=== PATIENT | female | born 1950 | race Caucasian/White ===

== ENCOUNTER 2019-03-29 21:17 | Emergency (ER) | payer OTHER, MEDICARE ==
[~2019-03-29] VITALS: Ht 157.5 cm; Wt 55.3 kg
[2019-03-29 21:45] LABS: BASOPHILS ABSOLUTE AUTO 0.06 K/mm3 (0.00-0.23); BASOPHILS PERCENT AUTO 1 % (0-2); EOSINOPHILS ABSOLUTE AUTO 0.04 K/mm3 (0.00-0.68); EOSINOPHILS PERCENT AUTO 0 % (0-6); Hematocrit 41.9 % (33.0-51.0); Hemoglobin 13.6 g/dL (11.5-16.0); IMMATURE GRAN ABSOLUTE AUTO 0.05 K/mm3 (0.00-0.10); IMMATURE GRAN PERCENT AUTO 0 % (0-1); LYMPHOCYTES ABSOLUTE AUTO 2.38 K/mm3 (0.84-5.20); LYMPHOCYTES PERCENT AUTO 19 % (21-46); MONOCYTES PERCENT AUTO 9 % (4-13); Mean Corpuscular HGB 30.8 pg (26.0-34.0); Mean Corpuscular HGB Conc 32.5 g/dL (31.5-36.5); Mean Corpuscular Volume 95 fL (80-100); Mean Platelet Volume 9.8 fL (9.1-12.4); NEUTROPHILS ABSOLUTE AUTO 8.89 K/mm3 (1.96-9.15); NEUTROPHILS PERCENT AUTO 71 % (41-73); Platelet Count 262 K/mm3 (150-400); RDW Standard Deviation 49.4 fL (35.1-46.3); Red Blood Cell Count 4.42 M/mm3 (3.80-5.20); White Blood Cell Count 12.52 K/mm3 (4.00-11.30)
[2019-03-29 22:05] LABS: Alanine Aminotransfer (ALT/SGP 121 U/L (12-78); Albumin, Blood 3.7 g/dL (3.4-5.0); Albumin/Globulin Ratio 0.8 (0.8-1.8); Alk Phos 114 U/L (50-136); Anion Gap 6 mmol/L (6-16); Aspartate Aminotrans (AST/SGOT 117 U/L (12-37); Bilirubin, Total 0.4 mg/dL (0.1-1.0); Blood Urea Nitrogen 14 mg/dL (8-24); Bun/Creatinine Ratio 18.3 (12.0-20.0); CO2, Blood 28 mmol/L (21-32); Calcium, Blood 9.1 mg/dL (8.5-10.1); Chloride, Blood 107 mmol/L (98-108); Creatinine, Blood 0.76 mg/dL (0.40-1.00); Globulin, Blood 4.4 g/dL (2.2-4.0); Glomerular Filtration Rate >60 (60-); Glucose, Blood 92 mg/dL (70-99); Potassium, Blood 3.6 mmol/L (3.5-5.5); Sodium, Blood 141 mmol/L (136-145); Total Protein, Blood 8.1 g/dL (6.4-8.2)
[2019-03-29] MEDS ORDERED: TRAZ50 PO (22:47)
[2019-03-30] MEDS ORDERED: Augmentin 500-1 EACH PO (01:02)
== END 2019-03-30 02:04 | disposition home or self-care (01) ==
LOC: ER 21:17
PROVIDERS: Emergency Medicine
DX: R10.84 Generalized abdominal pain (principal); Z79.899 Other long term (current) drug therapy; V03.10XA Pedestrian on foot injured in collision with car, pick-up truck or van in traffic accident, initial encounter
CPT/HCPCS: 70450; 70486; 72125; 74177; 80053; 83690; 85025; 96361; 96374-59; 96375; 99284-25; A9270; A9270-GY; J2405; J3010; J7030; Q9967

== ENCOUNTER 2019-04-11 07:47 | Day surgery (SDC) | payer MEDICARE, OTHER ==
[~2019-04-11] VITALS: Ht 157.5 cm; Wt 55.3 kg
[~2019-04-11 07:47] MED LIST: Augmentin 500-1 EACH PO; TRAZ50 PO
[2019-04-11] MEDS ORDERED: TRAM50 (08:10)
== END 2019-04-11 09:45 | disposition home or self-care (01) ==
LOC: ORSCSDS 07:47
PROVIDERS: Ophthalmology
PROC: 080PXZZ Alteration of Left Upper Eyelid, External Approach (ICD-10-PCS; principal; 2019-04-11 09:15)
PROC: 080NXZZ Alteration of Right Upper Eyelid, External Approach (ICD-10-PCS; principal; 2019-04-11 09:15)
DX: H02.831 Dermatochalasis of right upper eyelid (principal); H02.834 Dermatochalasis of left upper eyelid
CPT/HCPCS: J2250; J2704; J3010; J7120

== ENCOUNTER → 2022-04-21 | Outpatient (CLI) | payer OTHER ==
[~2022-04-21] MED LIST changes: +TRAM50
== END ==
LOC: LAB 17:25 → LAB SHORT 17:25
DX: N39.0 Urinary tract infection, site not specified (principal)
CPT/HCPCS: 87077; 87086; 87186

== ENCOUNTER 2023-07-15 06:40 | Day surgery (SDC) | payer OTHER ==
[~2023-07-15] VITALS: Ht 152.4 cm; Wt 58.2 kg
[~2023-07-15 06:40] MED LIST changes: +BACLOFEN10 M1 PO; +CALCIUM MAGNES1 EAC1 PO; +CINNAMON EXTRA500 MG; +GABA300 PO; +HYDROCODONE-AC1 EA10 PO; +Lysine500 MG PO; +[UNRECOGNIZED DRUG - CODE]
[2023-07-15 08:43] VITALS: BP 116/63
== END 2023-07-15 08:56 | disposition home or self-care (01) ==
LOC: ORSCSDS 06:40
PROVIDERS: Internal Medicine Gastroenterology
PROC: 0DBN8ZX Excision of Sigmoid Colon, Via Natural or Artificial Opening Endoscopic, Diagnostic (ICD-10-PCS; principal; 2023-07-15 08:00)
DX: Z12.11 Encounter for screening for malignant neoplasm of colon (principal); K63.5 Polyp of colon; K64.4 Residual hemorrhoidal skin tags; Z79.899 Other long term (current) drug therapy
CPT/HCPCS: 88305; J2704; J7120